=== PATIENT | female | born 1990 | race Caucasian/White ===

== ENCOUNTER → 2016-03-11 | Day surgery (SDC) | payer OTHER ==
[~2016-03-11] VITALS: Ht 170.2 cm; Wt 123.4 kg
[~2016-03-11] MED LIST: BRINTELLIX20 M1 PO; CLONAZEPAM0.5 M2 PO; IBUPROFEN800 MG PO; NORCO 5-325 TA1 EACH PO; PRILOSEC OTC20 MG PO; SILVADENE CREA400 GM TOP; ZOFRAN ODT4 M1 SL
--- NOTE | 2016-03-11 16:02 | Operative Report ---
Operative/Inv Procedure Report Surgery Date: 03/11/16 Name of Procedure: Laparoscopic Cholecystectomy Pre-Operative Diagnosis: Cholelithiasis/Biliary colic Post-Operative Diagnosis: Chronic Cholecystitis Estimated Blood Loss: less than 50ml Surgeon/Referral Management Liaison: JOHNNY CHILD DO, MD Anesthesia: general endotracheal tube IV Fluids: 1000 cc Drains: none Specimens: Gallbladder Complications: none Condition: stable Operative Indication: This is a 25-year-old female that presented to the office with diagnosis of biliary colic. Patient was seen in the emergency room for abdominal pain and was found to have gallstones. Her symptoms improved in the emergency room and she was discharged home to follow-up in the office. A laparoscopic cholecystectomy was discussed in detail. All risks including but not limited to bleeding, infection, bile leak, and injury to surrounding duct/bowel were discussed in detail. The patient understood everything and decided to proceed. Operative/Procedure Note Note: The patient was brought to the operating room and placed on the operating room table in supine position. Venodyne stockings were placed and adequate general endotracheal anesthesia was obtained. The patient was prepped and draped in standard surgical fashion. We began the procedure by making a 2 cm transverse incision in the infraumbilical crease. The incision was carried down to the fascia, once the fascia was clearly visualized it was picked up between 2 patrica clamps. The fascia was divided in the midline and once we entered the peritoneum 2 stay 0 Vicryl sutures were placed on each side. A 12 mm blunt port was inserted and the abdominal cavity was insufflated to 15 mmHg. A 10 mm 30 laparoscope was introduced and upon initial examination no obvious gross pathology was seen. We did note a contracted gallbladder in the right upper quadrant, location of the gallbladder was close to the left lobe and the falciform. Accessory trocars were placed, all 5 mm, one in the epigastrium and 2 in the right upper quadrant (one in the midclavicular line and one in the anterior axillary line, both 2 fingerbreadths below the costal margin). The gallbladder was grasped with the lateralmost trocar and retracted up over the liver. Using the other 2 accessory trocars the infundibulum was grasped and the peritoneum was lysed using blunt dissection and using hook electrocautery, the duodenum was carefully daissected away from the gallbladder. Of note there were dense adhesions around the infundibulum and careful dissection was carried out to indentify the [place], the patient's anatomy was slightly distorted due to chronic inflammation. The cystic duct and cystic artery were visualized. The common bile duct was visualized and it was away from our area of dissection. The cystic duct and artery were skeletonized and divided between clips, 3 clips to stay and one clip on the gallbladder side for the duct and 2 clips to stay and one clip on the gallbladder side for the artery. The gallbladder was dissected off the liver bed using hook electrocautery maintaining hemostasis. Prior to completely removing the gallbladder off the liver bed we examined the area of dissection no obvious bile leak or bleeding was noted, the clips appeared to be in good position. The gallbladder was completely detached from the liver bed. We switched to a 5 mm laparoscope and a 10 mm Endobag was introduced through the umbilical trocar site. The gallbladder was placed in the bag and removed through the umbilicus. The abdomen was reinsufflated. We switched back to a 10 mm laparoscope and examined our area of dissection. No obvious bile leak or bleeding was noted. The right upper quadrant was irrigated until clear. All ports were removed under direct visualization, no obvious bleeding was noted. The umbilical trocar site was closed using 0 Vicryl suture. The skin was closed using 4-0 Monocryl. Steri-Strips and dressings were placed. The patient was successfully extubated and transferred to the recovery room in stable condition. The patient tolerated the procedure well with no complications. Findings: contracted gallbladder, multiple small stones, thick wall, adhesions around infundibulum
== END ==
LOC: STS 02:55
DX: K81.1 Chronic cholecystitis (principal); K82.8 Other specified diseases of gallbladder; E66.9 Obesity, unspecified; F17.200 Nicotine dependence, unspecified, uncomplicated
CPT/HCPCS: 81025; 88304; 88305; J0131; J0690; J1100; J2250; J2405